=== PATIENT | female | born 1995 | race Caucasian/White ===

== ENCOUNTER → 2021-08-07 | Outpatient (CLI) | payer MEDICAID, OTHER ==
[2021-08-07 13:57] LABS: BASO % 0.4 % (0.0-1.0); EOS # 0.1 10^3/uL (0.0-0.5); EOS % 0.8 % (0.0-3.0); HEMATOCRIT 38.4 % (36.0-47.0); HEMOGLOBIN 12.7 g/dl (12.0-15.5); LYMPH # 1.9 10^3/uL (1.5-5.0); LYMPH % 19.1 % (24.0-44.0); MEAN CORPUSCULAR HEMOGLOBIN 28.6 pg (27.0-33.0); MEAN CORPUSCULAR HGB CONC 33.1 g/dl (32.0-36.5); MEAN CORPUSCULAR VOLUME 86.5 fl (80.0-96.0); MONO # 0.7 10^3/uL (0.0-0.8); MONO % 6.7 % (2.0-8.0); NEUTROPHILS # 7.1 10^3/uL (1.5-8.5); NEUTROPHILS % 72.5 % (36.0-66.0); PLATELET COUNT, AUTOMATED 215 10^3/uL (150-450); RED BLOOD COUNT 4.44 10^6/uL (4.00-5.40); WHITE BLOOD COUNT 9.8 10^3/uL (4.0-10.0)
[2021-08-07 15:19] LABS: HEPATITIS C VIRUS ABY INDEX < 0.0 INDEX (<0.8); HIV 1&2 SCREEN CENTAUR NEGATIVE (NEGATIVE)
[2021-08-07 17:03] LABS: GC DNA AMPLIFICATION NEGATIVE (NEGATIVE)
== END ==
LOC: M PLALAB 11:32
PROVIDERS: ATTEND Obstetrics & Gynecology
DX: Z34.90 Encounter for supervision of normal pregnancy, unspecified, unspecified trimester (principal); Z3A.00 Weeks of gestation of pregnancy not specified

== ENCOUNTER → 2021-08-17 | Outpatient (CLI) | payer MEDICAID ==
--- NOTE | 2021-08-17 13:02 | REP ---
INDICATION: DATING AND VIABILITY. COMPARISON: None. TECHNIQUE: Real-time sonographic evaluation of gravid uterus performed. FINDINGS: There is a single living intrauterine gestation. The estimated gestational age is 9 weeks 0 days based on a crown-rump length of 23 mm. EDC 03/22/2022. heart rate 140 beats per minute. Subchorionic hemorrhage is noted on the right measuring 16 x 5 x 4 mm. The ovaries appear unremarkable bilaterally. IMPRESSION: Single living intrauterine gestation as above. Small subchorionic hemorrhage. <Electronically signed by Forrest Triana > 08/17/21 [id number]
== END ==
LOC: M WHC 10:36
PROVIDERS: ATTEND Obstetrics & Gynecology
DX: Z34.91 Encounter for supervision of normal pregnancy, unspecified, first trimester (principal); Z3A.09 9 weeks gestation of pregnancy

== ENCOUNTER → 2021-09-03 | Outpatient (REF) | payer MEDICAID | LOC: M SFHCWAGY 18:43 | PROVIDERS: ATTEND Advanced Practice Midwife | DX: Z12.4 Encounter for screening for malignant neoplasm of cervix (principal) ==

== ENCOUNTER → 2021-11-11 | Outpatient (REF) | LOC: M LABSMTC 12:37 | PROVIDERS: ATTEND Pediatrics | DX: Z20.822 Contact with and (suspected) exposure to COVID-19 (principal) ==

== ENCOUNTER → 2022-01-01 | Outpatient (CLI) | payer OTHER | LOC: M WHC 12:04 | PROVIDERS: ATTEND Obstetrics & Gynecology | DX: Z36.2 Encounter for other antenatal screening follow-up (principal); Z3A.28 28 weeks gestation of pregnancy ==

== ENCOUNTER → 2022-01-01 | Outpatient (CLI) | payer OTHER ==
[2022-01-01 17:10] LABS: HEMOGLOBIN 11.2 g/dl (12.0-15.5); MEAN CORPUSCULAR HEMOGLOBIN 29.5 pg (27.0-33.0); MEAN CORPUSCULAR HGB CONC 32.9 g/dl (32.0-36.5); MEAN CORPUSCULAR VOLUME 89.5 fl (80.0-96.0); PLATELET COUNT, AUTOMATED 247 10^3/uL (150-450); WHITE BLOOD COUNT 10.7 10^3/uL (4.0-10.0)
[2022-01-01 17:58] LABS: GC DNA AMPLIFICATION NEGATIVE (NEGATIVE)
== END ==
LOC: M PLALAB 13:17
PROVIDERS: ATTEND Obstetrics & Gynecology
DX: Z34.82 Encounter for supervision of other normal pregnancy, second trimester (principal); Z3A.24 24 weeks gestation of pregnancy
CPT/HCPCS: 36415; 82950; 85027; 86850; 86900; 86901; 87810; 87850; J2790

== ENCOUNTER → 2022-02-24 | Outpatient (REF) | payer OTHER, MEDICAID | LOC: M SFHCWAGY 12:58 | PROVIDERS: ATTEND Obstetrics & Gynecology | DX: Z36.85 Encounter for antenatal screening for Streptococcus B (principal); Z3A.36 36 weeks gestation of pregnancy ==

== ENCOUNTER 2022-03-14 11:10 | Inpatient (IN) | payer OTHER, MEDICAID ==
[~2022-03-14] VITALS: Ht 165.1 cm; Wt 95.2 kg
[2022-03-14] VITALS (32 sets, daily range): BP systolic 103–144; BP diastolic 53–89
[2022-03-14] MEDS ORDERED: PREN1TAB11 PO (11:29)
[2022-03-14] MEDS ORDERED: BENA25CA4 PO (11:29)
[2022-03-14 12:18] LABS: HEMATOCRIT 33.4 % (36.0-47.0); HEMOGLOBIN 11.1 g/dl (12.0-15.5); MEAN CORPUSCULAR HEMOGLOBIN 28.8 pg (27.0-33.0); MEAN CORPUSCULAR HGB CONC 33.2 g/dl (32.0-36.5); MEAN CORPUSCULAR VOLUME 86.8 fl (80.0-96.0); PLATELET COUNT, AUTOMATED 176 10^3/uL (150-450); RED BLOOD COUNT 3.85 10^6/uL (4.00-5.40); WHITE BLOOD COUNT 11.7 10^3/uL (4.0-10.0)
[2022-03-14] MEDS ORDERED: TRANEXAMIC ACID INJection 1,000 MG in NS 100 ML IV PRN (12:40)
[2022-03-14] MEDS ORDERED: METHYLERGONOVINE MALEATE 0.2 MG/ML VIAL (J2210) IM PRN (12:40)
[2022-03-14] MEDS ORDERED: LACTATED RINGER'S 1000 ML IV PRN ×2 (12:40→15:00)
[2022-03-14] MEDS ORDERED: CARBOPROST TROMETHAMINE 250 MCG/ML AMP IM PRN (12:40)
[2022-03-14] MEDS ORDERED: OXYTOCIN DRIP 30 UNITS in IV 1 EA IV PRN ×4 (12:40)
[2022-03-14] MEDS ORDERED: FENTANYL 2MCG/ML ROPIVACAINE 0.2% IN 0.9% NACL 100ML IVBAG As Ordered ONE (13:15)
[2022-03-14] MEDS: LR 1,000 ML IV SCH ×2 (14:58→17:15)
[2022-03-14] MEDS ORDERED: EPIDURAL COMMENT XX SCH (15:00)
[2022-03-14] MEDS ORDERED: EPIDURAL/PCA KEYS XX PRN (15:00)
[2022-03-14] MEDS ORDERED: ePHEDrine SULFATE 25 MG/5 ML(5MG/ML) SYRINGE IV PRN (15:00)
[2022-03-14] MEDS ORDERED: FENTANYL/ROPIVACAINE/NACL BAG 100 ML EPIDURAL SCH (15:00)
[2022-03-14] MEDS ORDERED: NALOXONE INJ 0.4MG/1ML VIAL (J2310 PER 1MG) IV PRN (15:00)
[2022-03-14] MEDS ORDERED: REFRIGERATOR IV KEYS XX PRN (15:00)
[2022-03-14] MEDS ORDERED: ONDANSETRON 4MG/2ML VIAL IV PRN (15:00)
[2022-03-14] MEDS ORDERED: diphenhydrAMINE 50MG/ML VIAL (J1200) IV PRN (15:00)
[2022-03-14] MEDS ORDERED: OXYTOCIN DRIP IV SCH (17:05)
[2022-03-14] MEDS ORDERED: OXYTOCIN DRIP 30 UNITS in IV 1 EA IV SCH (17:25)
[2022-03-14] MEDS ORDERED: RHOGAM 300 MCG (1500 IU) INJ (J2790) IM SCH (22:40)
[2022-03-14] MEDS ORDERED: DIBUCAINE 1% OINTMENT 30GM TOP PRN (22:40)
[2022-03-14] MEDS ORDERED: MEASLES,MUMPS,RUBELLA VACCINE INJ (MMR-II) (90707) SC SCH (22:40)
[2022-03-14] MEDS ORDERED: DOCUSATE SODIUM 100MG CAPSULE PO PRN (22:40)
[2022-03-14] MEDS ORDERED: METHYLERGONOVINE MALEATE 0.2 MG TAB PO PRN (22:40)
[2022-03-15 00:15] VITALS: BP 130/59
[2022-03-15 06:00] VITALS: BP 107/56
[2022-03-15] MEDS: ACETAMINOPHEN 500 MG TAB PO PRN ×3 (06:17→20:06)
[2022-03-15] MEDS: PRENATAL VITAMINS CHEWABLE TABLET PO SCH (09:24)
[2022-03-15] MEDS: IBUPROFEN 600MG TAB PO PRN ×3 (09:25→15:47)
[2022-03-15 18:00] VITALS: BP 124/60
[2022-03-16] MEDS: IBUPROFEN 600MG TAB PO PRN ×2 (01:50→09:58)
[2022-03-16 05:45] VITALS: BP 117/60
[2022-03-16] MEDS: ACETAMINOPHEN 500 MG TAB PO PRN (06:00)
[2022-03-16] MEDS: PRENATAL VITAMINS CHEWABLE TABLET PO SCH (09:58)
[2022-03-16 11:13] VITALS: BP 117/60
== END 2022-03-16 11:59 | disposition home or self-care (01) | DRG 560 ==
LOC: M LDO 11:10 → M LDI 11:39 → M OBS 03-15 00:12
PROVIDERS: ADMIT Obstetrics & Gynecology; ATTEND Obstetrics & Gynecology
PROC: 10E0XZZ Delivery of Products of Conception, External Approach (ICD-10-PCS; principal; 2022-03-14)
PROC: 10907ZC Drainage of Amniotic Fluid, Therapeutic from Products of Conception, Via Natural or Artificial Opening (ICD-10-PCS; 2022-03-14)
PROC: 0HQ9XZZ Repair Perineum Skin, External Approach (ICD-10-PCS; 2022-03-14)
DX: O34.211 Maternal care for low transverse scar from previous cesarean delivery (principal); O70.0 First degree perineal laceration during delivery; Z37.0 Single live birth; Z3A.38 38 weeks gestation of pregnancy; Z88.0 Allergy status to penicillin; Z91.040 Latex allergy status